=== PATIENT | female | born 1955 | race Caucasian/White ===

== ENCOUNTER → 2022-06-05 11:55 | Outpatient (CLI) | payer MEDICARE, OTHER, SELFPAY ==
--- NOTE | ~2022-06-05 | MMUS_ITS ---
EXAMINATION: MM diagnostic ramesh BI w victoriano, US breast RT limited HISTORY: Palpable lump in the upper outer quadrant of the right breast TECHNIQUE: Craniocaudal, mediolateral, and mediolateral oblique 3-D tomosynthesis images of the cyndi ts were performed and synthetic 2-D images were generated. CAD analysis was submitted and interpreted . High resolution limited right breast ultrasound was performed. COMPARISON: No prior mammogram is currently available for comparison. BREAST PARENCHYMAL COMPOSITION: The breasts are heterogeneously dense, which may obscure small masses . FINDINGS: MAMMOGRAPHIC FINDINGS: Right breast: There is a 2.9 x 1.8 cm irregular spiculated mass in the middle third of the upper oute r quadrant of the breast at the 10:00 location 6 cm from the nipple corresponding to the palpable abn ormality of concern. The mass demonstrates associated architectural distortion and pleomorphic calcif ication. No additional mass is identified. Left breast: No suspicious mass, calcification, or architectural distortion are identified to suggest malignancy. ULTRASOUND: There is a 3.1 x 2.1 cm irregular, hypoechoic, parallel mass with spiculated margins at the 10:00 loc ation 6 cm from the nipple corresponding to the palpable abnormality of concern. The mass demonstrate s calcification and internal vascularity. IMPRESSION: 1. Irregular right breast mass corresponding to the palpable abnormality concern. 2. Ultrasound-guided biopsy is recommended. BI-RADS category 5, highly suggestive of malignancy. Reviewed, dictated and finalized at location F. MAKER IMPRESSION: 1. Irregular right breast mass corresponding to the palpable abnormality concer n. 2. Ultrasound-guided biopsy is recommended. BI-RADS category 5, highly suggestive of malignancy.
== END ==
PROVIDERS: PCP Nurse Practitioner Family; Visit Provider Nurse Practitioner Family
DX: R92.8 Other abnormal and inconclusive findings on diagnostic imaging of breast (principal)
CPT/HCPCS: 76642; 77062; 77066; G0279

== ENCOUNTER 2022-08-03 08:39 | Outpatient (CLI) | payer MEDICARE, OTHER, SELFPAY ==
--- NOTE | ~2022-08-03 | CT_ITS ---
Clinical Indication: Right breast cancer CT Scan of the Chest, Abdomen, and Pelvis with Contrast: Technique: Contiguous sections were acquired throughout the chest, abdomen, and pelvis after intraven ous administration of 100 cc of Omnipaque 350. Dose reduction technique was used on this scan by karoline hyatt automated exposure control and iterative reconstruction technique. The dose-length product (DL P) was 694.36 mGy-cm. Findings: There is no evidence of any significant mediastinal, hilar or axillary lymphadenopathy. Moderate to l arge hiatal hernia present. The mediastinal soft tissues and vascular structures otherwise appear nor mal. There is no evidence of pleural or pericardial effusion. Several small calcified pulmonary granulomas are present. No suspicious pulmonary nodules seen. 3.1 x 2.3 cm lateral right breast mass is present, compatible with history of breast carcinoma. The liver, spleen, pancreas, gallbladder, adrenals and kidneys are within normal limits. No evidence of aortic aneurysm. No lymphadenopathy. No bowel obstruction or bowel wall thickening. There is no evidence to suggest acute appendicitis. Urinary bladder is unremarkable. Patient is post hysterectomy. No pelvic mass seen. No ascites. Impression: 3.1 x 2.3 cm lateral right breast mass, consistent with history of breast carcinoma. No evidence for metastatic disease. Moderate to large hiatal hernia. Reviewed, dictated and finalized at location . MACHINE OPERATOR Impression: 3.1 x 2.3 cm lateral right breast mass, consistent with history of breast carci noma. No evidence for metastatic disease. Moderate to large hiatal hernia.
[2022-08-03 09:22] LABS: Estimated Glomerular Filt Rate > 60
== END 2022-08-03 08:40 | disposition home or self-care (01) ==
PROVIDERS: PCP Nurse Practitioner Family; Visit Provider Internal Medicine Medical Oncology
DX: C50.411 Malignant neoplasm of upper-outer quadrant of right female breast (principal); Z17.1 Estrogen receptor negative status [ER-]; K44.9 Diaphragmatic hernia without obstruction or gangrene
CPT/HCPCS: 71260; 74177; Q9967